=== PATIENT | female | born 1995 | race Caucasian/White ===

== ENCOUNTER 2019-05-23 14:12 | Emergency (ER) | payer OTHER ==
[~2019-05-23] VITALS: Ht 154.9 cm; Wt 87.2 kg
--- NOTE | 2019-05-23 14:59 | NUR ---
PT WALKED BACK FROM LOBBY TO ROOM AT THIS TIME.
--- NOTE | 2019-05-23 15:12 | NUR ---
FIRST CONTACT WITH PT. PT STATES "I'M HAVING A REALLY BAD MIGRAINE. I WAS THROWING UP LAST NIGHT AND IT'S JUST NOT GETTING ANY BETTER." PT'S AOX4. RESPS EVEN AND UNLABORED. DENIES ANY OTHER SYMPTOMS. BP/SPO2 MONITORS IN PLACE. CALL LIGHT WITHIN REACH.
[2019-05-23] MEDS ORDERED: DIPHENHYDRAMINE 50 MG/ML, 1ML ONE (15:28)
[2019-05-23] MEDS ORDERED: METOCLOPRAMIDE 5 MG/ML, 2ML ONE (15:29)
[2019-05-23] MEDS ORDERED: KETOROLAC 30 MG/1 ML ONE (15:29)
[2019-05-23] MEDS ORDERED: KETOROLAC 30 MG/1 ML IVPush ONE (15:30)
[2019-05-23] MEDS ORDERED: DIPHENHYDRAMINE 50 MG/ML, 1ML IVPush ONE (15:30)
[2019-05-23] MEDS ORDERED: METOCLOPRAMIDE 5 MG/ML, 2ML IVPush ONE (15:30)
--- NOTE | 2019-05-23 15:39 | NUR ---
pt medicated per emar. pt tolerated well.
[2019-05-23 17:05] VITALS: BP 116/63
--- NOTE | 2019-05-23 17:12 | NUR ---
Patient given discharge instructions and they have confirmed that they understand the instructions. Patient ambulatory with steady gait.
== END 2019-05-23 17:14 | disposition home or self-care (01) ==
LOC: ED 17:05
DX: G43.109 Migraine with aura, not intractable, without status migrainosus (principal)
CPT/HCPCS: 96374; 96375; 99284; J1200; J1885; J2765

== ENCOUNTER → 2020-08-01 | Outpatient (CLI) | payer OTHER | END | disposition home or self-care (01) | LOC: RAD 09:16 | PROVIDERS: ATTEND Obstetrics & Gynecology | DX: R09.81 Nasal congestion (principal) | CPT/HCPCS: 70220 ==